=== PATIENT | female | born 1985 ===

== ENCOUNTER 2016-10-16 21:40 | Emergency (ER) | payer OTHER ==
--- NOTE | 2016-10-16 22:52 | ED NURSING NOTES ---
Clinical Report - Nurses [facility] [address] [place] [address] 10/16/2016 21:42 Patient: DISHA ARIAS TRIAGE Triage time 2150. Acuity: LEVEL 3. Chief Complaint: (heavy vag bleeding x 5 days- states "it feels like where my was is ripping apart"). 21:50. --22:01 Alice Rivera R.N. 21:50 10/16/16. BP: 127/61. HR: 87. RR: 20. O2 saturation: 99%. Temp: 98.3 F. Pain level now: 01/23. --22:01 Alice Rivera R.N. Weight: 86.1 kg stated. Height/Length: 65 inches Per Patient. BMI: 31.6. --21:57 Alice Rivera R.N. Medications robitussin 10cc TID for cough. --00:19 Alice Rivera R.N. Hydroxyzine 50mg 1-2 at HS for sleep . --00:20 Alice Rivera R.N. Lamictala 150mg 2 tabs at HS . --00:21 Alice Rivera R.N. OPTICHAMBER MOLLY SOM EVERY 4 HOURS PRN WHEEZING . --00:21 Alice Rivera R.N. Seroquel 100mg at Breakfast and lunch, 400mg at HS . --00:22 Alice Rivera R.N. albuterol 2.5/3ml every 4 hours prn . --00:23 Alice Rivera R.N. Lexapro Oral 20 mg, daily. --00:23 Alice Rivera R.N. Neurontin Oral 800mg at Breakfast, lunch, dinner. 1600mg at HS . --00:23 Alice Rivera R.N. Methadone HCl Oral 118mg daily . --22:00 Alice Rivera R.N. Allergies Codeine. (not noted) Doxycycline.(hives) Erythromycin.(hives) Hydrocodone. (nausea only) Penicillins.(rash) --00:14 Ailce Rivera R.N. Sulfanilamide.(hives) --00:14 Alice Rivera R.N. Tramadol.(hives) --00:15 Alice Rivera R.N. Neomycin.(hives, rash) --00:15 Alice Rivera R.N. History Arrived by private vehicle. Historian: patient. Accompanied by family. Primary physician ([place]). The patient has had abdominal pain and abnormal bleeding. SOCIAL HX: Heavy tobacco smoker (cigarette)- 1-2 packs per day. No alcohol use or drug use. --22: Alice Rivera R.N. PROBLEMS: Abscess. --21:59 Alice Rivera R.N. ADDITIONAL SURGERIES: . --21:59 Alice Rivera R.N. Interventions ID band on patient. To treatment room. --22: Alice Rivera R.N. PHYSICAL ASSESSMENT 21:50. Ambulatory to room. Patient gowned. GENERAL / NEURO / PSYCH: Alert. Oriented X 4. Appears in pain and anxious. RESPIRATORY: Respirations not labored. CVS: Capillary refill less than 2 seconds. GI / : Abdomen soft. Vaginal bleeding present. SKIN: Skin is warm and dry. --22:02 Alice Rivera R.N. NURSING PROGRESS NOTES 21:50. Patient gowned. Head of bed elevated. Reassurance given. Patient identifiers checked. Call light placed in reach. Side rails up. Bed placed in lowest position. Patient ready for evaluation- chart flagged. --22:01 Alice Rivera R.N. late entry -22:00 UA obtained and sent to lab. --22:47 Alice Rivera R.N. 22:15. PELVIC EXAM: Pelvic exam performed by PA. Assisted by one tech. Preparation: pelvic tray; patient placed in lithotomy position. Procedure: speculum and bimanual exam. Status post-procedure: she was stable and no complications were noted. Total time of assist / procedure: 15 minutes. --22:45 Alice Rivera R.N. 22:25. ( US at bedside to do exam). --22:46 Alice Rivera R.N. DISPOSITION / DISCHARGE 23:05. Condition at departure: stable. Discharge instructions provided and reviewed with the patient and family. Reviewed referral to a body and fender mechanic. Patient and family verbalized understanding. Written instructions provided in French. The patient was discharged home and accompanied by family. She left the Emergency Department ambulatory and via private vehicle. Family member driving. --00:25 Alice Rivera R.N. 23:00 10/16/16. BP: 118/60. HR: 82. RR: 18. O2 saturation: 98%. Temp: deferred. Pain level now: 12/23. --00:25 Alice Rivera R.N. Locked/Released at 10/17/2016 0:26 by Alice Rivera R.N.
--- NOTE | 2016-10-16 22:52 | ED CLINICAL REPORT ---
Clinical Report - Physicians/Mid Levels [facility] [address] [place] [address] 10/16/2016 21:42 Patient: DISHA ARIAS Time Seen: 2200. Arrived- By private vehicle. Historian- family. HISTORY OF PRESENT ILLNESS Chief Complaint: VAGINAL BLEEDING. This started today and still present. The symptoms are described as mild. The patient has had pelvic pain. No pain with urination, urinary frequency or urgency of urination. (patient reports last motion appeared to be seriously, started having vaginal bleeding today was large clots. Denies any pain. Denies any shortness of breath. Denies any syncope. Denies tachycardia.). REVIEW OF SYSTEMS No vomiting, diarrhea, cough or difficulty breathing. All systems otherwise negative, except as recorded above. PAST HISTORY Problems: Abscess. Immunizations. LNMP - Last Normal Menstrual Period. Additional Surgeries: . Medications: Neurontin Oral 800mg at Breakfast, lunch, dinner. 1600mg at HS . Lexapro Oral 20 mg, daily. albuterol 2.5/3ml every 4 hours prn . Seroquel 100mg at Breakfast and lunch, 400mg at HS . OPTICHAMBER MOLLY SOM EVERY 4 HOURS PRN WHEEZING . Lamictala 150mg 2 tabs at HS . Hydroxyzine 50mg 1-2 at HS for sleep . robitussin 10cc TID for cough. Methadone HCl Oral 118mg daily . Allergies: Codeine. (not noted) Doxycycline.(hives) Erythromycin.(hives) Hydrocodone. (nausea only) Neomycin.(hives, rash) Penicillins.(rash) Sulfanilamide.(hives) Tramadol.(hives). SOCIAL HISTORY Current every day heavy tobacco smoker- 1-2 packs per day. No alcohol use or drug use. ADDITIONAL NOTES The nursing notes have been reviewed. PHYSICAL EXAM Vital Signs: 10/16/2016 21:50 BP: 127/61. HR: 87. RR: 20. O2 saturation: 99%. Temp: 98.3 F. Pain level now: 8/10. Appearance: Alert. Neck: Neck supple. CVS: Heart sounds normal. Rate normal. Rhythm normal. Respiratory: No respiratory distress. Breath sounds normal. Abdomen: Soft and nontender. Bowel sounds normal. No mass. No abdominal tenderness, rebound tenderness or distention. : External inspection normal. Speculum exam normal. Vaginal bleeding. No cervical dilation. Bimanual exam normal. No tenderness present on bimanual exam. No uterine tenderness. Skin: Skin warm. Normal skin color. Neuro: Oriented X 3. LABS, X-RAYS, AND EKG Pelvic Sonogram: IMPRESSION: 1. Retroflexed uterus. 2. Ovaries not visualized. Electronically Final signed by:Nilson Stanton MD 10/16/2016 11:40:49 PM. Laboratory Tests: UA-Culture if indicated: (DG: 10/16/2016 22:10) ( MsgRcvd 10/16/2016 22:34) Final results Test Result Flag Units (Reference) URINE COLOR YELLOW URINE APPEARANCE CLEAR URINE GLUCOSE NEGATIVE (NEGATIVE) URINE BILIRUBIN NEGATIVE (NEGATIVE) URINE KETONE NEGATIVE (NEGATIVE) URINE SPECIFIC GRAVITY <= 1.005 L (1.010-1.030) URINE PH 6.5 (5.0-8.0) URINE PROTEIN NEGATIVE (NEGATIVE) URINE UROBILINOGEN 0.2 EU/dL (0.2-1.0) URINE NITRITE NEGATIVE (NEGATIVE) URINE BLOOD 3+ (NEGATIVE) URINE LEUK ESTERASE NEGATIVE (NEGATIVE) URINE RBC 25-50 rbc/hpf (0-1) URINE WBC 0-1 wbc/hpf (0-1) URINE EPITHELIAL CELLS 0-1 EPI/hpf (0-5) URINE BACTERIA NONE SEEN (NONE SEEN) URINE COMMENT CULT NOT INDICATED URINE CULTURES ARE SET-UP BASED ON THE FOLLOWING CRITERIA:POSITIVE NITRITEPOSITIVE LEUKOCYTE ESTERASEGREATER THAN 10 WHITE BLOOD CELLSMODERATE (2+) OR GREATER BACTERIA Urine: (DG: 10/16/2016 22:10) ( MsgRcvd 10/16/2016 22:24) Final results Test Result Flag Units (Reference) URINE NEGATIVE . PROGRESS AND PROCEDURES Course of Care: Patient with minimal pain. Vag bleeding. Neg preg. NO concern for torsion as patient does not present with pain. TO f/u outpatient or in ER if sx change abruptly. No signs of acute surgical abdomen. Patient is stable. Symptoms better. Patient/family counseled. Disposition: Discharged. CLINICAL IMPRESSION Moderate dysfunctional uterine bleeding- metrorrhagia. INSTRUCTIONS Drink plenty of fluids. Warnings: Further evaluation is necessary. GENERAL WARNINGS: Return or contact your physician immediately if your condition worsens or changes unexpectedly, if not improving as expected, or if other problems arise. Prescription Medications: Ibuprofen 800 mg tablets: take 1 tablet orally every 8 hours for 3 days, as needed for pain. Dispense ten (10). No refill. Follow-up with: Jayesh Morrell MD, Obstetrics/Gynecology, , [facility], [address] [place] [address] Follow up. Call for the next available appointment. (Electronically signed by Mojgan Espitia P.A.-C 10/17/2016 14:06)
--- NOTE | 2016-10-16 22:52 | ED CLINICAL REPORT ---
Clinical Report - Physicians/Mid Levels Located [facility] [address] [place] [address] 10/16/2016 21:42 Patient: DISHA ARIAS Time Seen: 2200. Arrived- By private vehicle. Historian- family. HISTORY OF PRESENT ILLNESS Chief Complaint: VAGINAL BLEEDING. This started today and still present. The symptoms are described as mild. The patient has had pelvic pain. No pain with urination, urinary frequency or urgency of urination. (patient reports last motion appeared to be seriously, started having vaginal bleeding today was large clots. Denies any pain. Denies any shortness of breath. Denies any syncope. Denies tachycardia.). REVIEW OF SYSTEMS No vomiting, diarrhea, cough or difficulty breathing. All systems otherwise negative, except as recorded above. PAST HISTORY Problems: Abscess. Immunizations. LNMP - Last Normal Menstrual Period. Additional Surgeries: . Medications: Neurontin Oral 800mg at Breakfast, lunch, dinner. 1600mg at HS . Lexapro Oral 20 mg, daily. albuterol 2.5/3ml every 4 hours prn . Seroquel 100mg at Breakfast and lunch, 400mg at HS . OPTICHAMBER MOLLY SOM EVERY 4 HOURS PRN WHEEZING . Lamictala 150mg 2 tabs at HS . Hydroxyzine 50mg 1-2 at HS for sleep . robitussin 10cc TID for cough. Methadone HCl Oral 118mg daily . Allergies: Codeine. (not noted) Doxycycline.(hives) Erythromycin.(hives) Hydrocodone. (nausea only) Neomycin.(hives, rash) Penicillins.(rash) Sulfanilamide.(hives) Tramadol.(hives). SOCIAL HISTORY Current every day heavy tobacco smoker- 1-2 packs per day. No alcohol use or drug use. ADDITIONAL NOTES The nursing notes have been reviewed. PHYSICAL EXAM Vital Signs: 10/16/2016 21:50 BP: 127/61. HR: 87. RR: 20. O2 saturation: 99%. Temp: 98.3 F. Pain level now: 8/10. Appearance: Alert. Neck: Neck supple. CVS: Heart sounds normal. Rate normal. Rhythm normal. Respiratory: No respiratory distress. Breath sounds normal. Abdomen: Soft and nontender. Bowel sounds normal. No mass. No abdominal tenderness, rebound tenderness or distention. : External inspection normal. Speculum exam normal. Vaginal bleeding. No cervical dilation. Bimanual exam normal. No tenderness present on bimanual exam. No uterine tenderness. Skin: Skin warm. Normal skin color. Neuro: Oriented X 3. LABS, X-RAYS, AND EKG Pelvic Sonogram: IMPRESSION: 1. Retroflexed uterus. 2. Ovaries not visualized. Electronically Final signed by:Nilson Stanton MD 10/16/2016 11:40:49 PM. Laboratory Tests: UA-Culture if indicated: (DG: 10/16/2016 22:10) ( MsgRcvd 10/16/2016 22:34) Final results Test Result Flag Units (Reference) URINE COLOR YELLOW URINE APPEARANCE CLEAR URINE GLUCOSE NEGATIVE (NEGATIVE) URINE BILIRUBIN NEGATIVE (NEGATIVE) URINE KETONE NEGATIVE (NEGATIVE) URINE SPECIFIC GRAVITY <= 1.005 L (1.010-1.030) URINE PH 6.5 (5.0-8.0) URINE PROTEIN NEGATIVE (NEGATIVE) URINE UROBILINOGEN 0.2 EU/dL (0.2-1.0) URINE NITRITE NEGATIVE (NEGATIVE) URINE BLOOD 3+ (NEGATIVE) URINE LEUK ESTERASE NEGATIVE (NEGATIVE) URINE RBC 25-50 rbc/hpf (0-1) URINE WBC 0-1 wbc/hpf (0-1) URINE EPITHELIAL CELLS 0-1 EPI/hpf (0-5) URINE BACTERIA NONE SEEN (NONE SEEN) URINE COMMENT CULT NOT INDICATED URINE CULTURES ARE SET-UP BASED ON THE FOLLOWING CRITERIA:POSITIVE NITRITEPOSITIVE LEUKOCYTE ESTERASEGREATER THAN 10 WHITE BLOOD CELLSMODERATE (2+) OR GREATER BACTERIA Urine: (DG: 10/16/2016 22:10) ( MsgRcvd 10/16/2016 22:24) Final results Test Result Flag Units (Reference) URINE NEGATIVE . PROGRESS AND PROCEDURES Course of Care: Patient with minimal pain. Vag bleeding. Neg preg. NO concern for torsion as patient does not present with pain. TO f/u outpatient or in ER if sx change abruptly. No signs of acute surgical abdomen. Patient is stable. Symptoms better. Patient/family counseled. Disposition: Discharged. CLINICAL IMPRESSION Moderate dysfunctional uterine bleeding- metrorrhagia. INSTRUCTIONS Drink plenty of fluids. Warnings: Further evaluation is necessary. GENERAL WARNINGS: Return or contact your physician immediately if your condition worsens or changes unexpectedly, if not improving as expected, or if other problems arise. Prescription Medications: Ibuprofen 800 mg tablets: take 1 tablet orally every 8 hours for 3 days, as needed for pain. Dispense ten (10). No refill. Follow-up with: Jayesh Morrell MD, Obstetrics/Gynecology, , [facility], [address] [place] [address] Follow up. Call for the next available appointment. (Electronically signed by Mojgan Espitia P.A.-C 10/17/2016 14:06)
--- NOTE | 2016-10-16 22:52 | ED ORDER SUMMARY ---
..... Patient: DISHA ARIAS OrderSheet [facility] VisitID: [id number] [place] [address] 31y, F Registration Date/Time: 10/16/2016 ORDER SHEET Weight: 86.1 kg (stated) Allergies: Codeine, Doxycycline, Erythromycin, Hydrocodone, Penicillins, Sulfanilamide, Tramadol, Neomycin GENERAL ORDERS: US Pelvic Complete w Transvag Urgent (21:56 10/16/2016 EKoroleva P.A.-C) (Ack 21:58 CHagerty ER Sheet Writer) (Cancelled: Other22:01 EKoroleva P.A.-C) US Pelvic Complete Urgent (22:01 10/16/2016 EKoroleva P.A.-C) (Ack 22:04 CHagerty ER Sheet Writer) (Cancelled: CORRECT ORDER22:16 CHagerty ER Sheet Writer) UA-Culture if indicated Urgent (22:15 10/16/2016 EKoroleva P.A.-C) (Ack 22:17 CHagerty ER Sheet Writer) (22:46 DDean R.N.) Urine Urgent (22:15 10/16/2016 EKoroleva P.A.-C) (Ack 22:17 CHagerty ER Sheet Writer) (22:46 DDean R.N.) US Pelvic Complete w Transvag Urgent (22:16 10/16/2016 CHagerty ER Sheet Writer written order EKoroleva P.A.-C) (Ack 22:17 CHagerty ER Sheet Writer) (22:46 DDean R.N.) MEDICATION ORDERS: IV FLUIDS: ORDER SHEET NOTES: [Electronically signed by Alice Rivera R.N. (00:26 10/17/2016)] [Electronically signed by Mojgan EspitiaAAngeles-C (14:06 10/17/2016)] [Electronically locked/signed by Alice Rivera R.N. (00:26 10/17/2016)]
--- NOTE | 2016-10-16 22:52 | ED ORDER SUMMARY ---
..... Patient: DISHA ARIAS OrderSheet [facility] VisitID: [id number] [place] [address] 31y, F Registration Date/Time: 10/16/2016 ORDER SHEET Weight: 86.1 kg (stated) Allergies: Codeine, Doxycycline, Erythromycin, Hydrocodone, Penicillins, Sulfanilamide, Tramadol, Neomycin GENERAL ORDERS: US Pelvic Complete w Transvag Urgent (21:56 10/16/2016 EKoroleva P.A.-C) (Ack 21:58 CHagerty ER Dehydrator Operator) (Cancelled: Other22:01 EKoroleva P.A.-C) US Pelvic Complete Urgent (22:01 10/16/2016 EKoroleva P.A.-C) (Ack 22:04 CHagerty ER Dehydrator Operator) (Cancelled: CORRECT ORDER22:16 CHagerty ER Dehydrator Operator) UA-Culture if indicated Urgent (22:15 10/16/2016 EKoroleva P.A.-C) (Ack 22:17 CHagerty ER Dehydrator Operator) (22:46 DDean R.N.) Urine Urgent (22:15 10/16/2016 EKoroleva P.A.-C) (Ack 22:17 CHagerty ER Dehydrator Operator) (22:46 DDean R.N.) US Pelvic Complete w Transvag Urgent (22:16 10/16/2016 CHagerty ER Dehydrator Operator written order EKoroleva P.A.-C) (Ack 22:17 CHagerty ER Dehydrator Operator) (22:46 DDean R.N.) MEDICATION ORDERS: IV FLUIDS: ORDER SHEET NOTES: [Electronically signed by Alice Rivera R.N. (00:26 10/17/2016)] [Electronically signed by Mojgan EspitiaAAngeles-C (14:06 10/17/2016)] [Electronically locked/signed by Alice Rivera R.N. (00:26 10/17/2016)]
--- NOTE | 2016-10-16 22:52 | ED NURSING NOTES ---
Clinical Report - Nurses [facility] [address] [place] [place] [address] 10/16/2016 21:42 Patient: DISHA ARIAS TRIAGE Triage time 2150. Acuity: LEVEL 3. Chief Complaint: (heavy vag bleeding x 5 days- states "it feels like where my was is ripping apart"). 21:50. --22:01 Alice Rivera R.N. 21:50 10/16/16. BP: 127/61. HR: 87. RR: 20. O2 saturation: 99%. Temp: 98.3 F. Pain level now: 01/23. --22:01 Alice Rivera R.N. Weight: 86.1 kg stated. Height/Length: 65 inches Per Patient. BMI: 31.6. --21:57 Alice Rivera R.N. Medications robitussin 10cc TID for cough. --00:19 Alice Rivera R.N. Hydroxyzine 50mg 1-2 at HS for sleep . --00:20 Alice Rivera R.N. Lamictala 150mg 2 tabs at HS . --00:21 Alice Rivera R.N. OPTICHAMBER MOLLY SOM EVERY 4 HOURS PRN WHEEZING . --00:21 Alice Rivera R.N. Seroquel 100mg at Breakfast and lunch, 400mg at HS . --00:22 Alice Rivera R.N. albuterol 2.5/3ml every 4 hours prn . --00:23 Alice Rivera R.N. Lexapro Oral 20 mg, daily. --00:23 Alice Rivera R.N. Neurontin Oral 800mg at Breakfast, lunch, dinner. 1600mg at HS . --00:23 Alice Rivera R.N. Methadone HCl Oral 118mg daily . --22:00 Alice Rivera R.N. Allergies Codeine. (not noted) Doxycycline.(hives) Erythromycin.(hives) Hydrocodone. (nausea only) Penicillins.(rash) --00:14 Alice Rivera R.N. Sulfanilamide.(hives) --00:14 Alice Rivera R.N. Tramadol.(hives) --00:15 Alice Rivera R.N. Neomycin.(hives, rash) --00:15 Alice Rivera R.N. History Arrived by private vehicle. Historian: patient. Accompanied by family. Primary physician ([place]). The patient has had abdominal pain and abnormal bleeding. SOCIAL HX: Heavy tobacco smoker (cigarette)- 1-2 packs per day. No alcohol use or drug use. --22: Alice Rivera R.N. PROBLEMS: Abscess. --21:59 Alice Rivera R.N. ADDITIONAL SURGERIES: . --21:59 Alice Rivera R.N. Interventions ID band on patient. To treatment room. --22: Alice Rivera R.N. PHYSICAL ASSESSMENT 21:50. Ambulatory to room. Patient gowned. GENERAL / NEURO / PSYCH: Alert. Oriented X 4. Appears in pain and anxious. RESPIRATORY: Respirations not labored. CVS: Capillary refill less than 2 seconds. GI / : Abdomen soft. Vaginal bleeding present. SKIN: Skin is warm and dry. --22:02 Alice Rivera R.N. NURSING PROGRESS NOTES 21:50. Patient gowned. Head of bed elevated. Reassurance given. Patient identifiers checked. Call light placed in reach. Side rails up. Bed placed in lowest position. Patient ready for evaluation- chart flagged. --22:01 Alice Rivera R.N. late entry -22:00 UA obtained and sent to lab. --22:47 Alice Rivera R.N. 22:15. PELVIC EXAM: Pelvic exam performed by PA. Assisted by one tech. Preparation: pelvic tray; patient placed in lithotomy position. Procedure: speculum and bimanual exam. Status post-procedure: she was stable and no complications were noted. Total time of assist / procedure: 15 minutes. --22:45 Alice Rivera R.N. 22:25. ( US at bedside to do exam). --22:46 Alice Rivera R.N. DISPOSITION / DISCHARGE 23:05. Condition at departure: stable. Discharge instructions provided and reviewed with the patient and family. Reviewed referral to a technology applications consultant. Patient and family verbalized understanding. Written instructions provided in Bhutanese. The patient was discharged home and accompanied by family. She left the Emergency Department ambulatory and via private vehicle. Family member driving. --00:25 Alice Rivera R.N. 23:00 10/16/16. BP: 118/60. HR: 82. RR: 18. O2 saturation: 98%. Temp: deferred. Pain level now: 12/23. --00:25 Alice Rivera R.N. Locked/Released at 10/17/2016 0:26 by Alice Rivera R.N.
--- NOTE | 2016-10-16 23:41 | DIAGNOSTIC IMAGING REPORT ---
PROCEDURE: US COMPLETE PELVIC W/TRANSVAG INDICATION: PAIN TECHNIQUE: Transabdominal and endovaginal reis scale and color Doppler sonographic images of the female pelvis were obtained. COMPARISON: Pelvic ultrasound 05/26/2007. FINDINGS: TRANSABDOMINAL SCANS: Study limited by patient's body habitus. Normal left kidney. Right renal lower pole not well visualized. The uterus measures 9.9 x 5.2 x 3.2 cm. TRANSVAGINAL SCANS: Retroflexed uterus. Myometrium is unremarkable. Endometrium is not well visualized. Ovaries are not visualized. No adnexal mass or free fluid in the cul-de-sac. IMPRESSION: 1. Retroflexed uterus. 2. Ovaries not visualized.
--- NOTE | 2016-10-17 14:06 | ED MED RECONCILIATION SUMMARY ---
Patient: DISHA ARIAS Medication Reconciliation Report [facility] VisitID: [id number] [address] [place] [address] 31y, F Registration Date/Time: 10/16/2016 Weight: 86.1 kg Height/Length: 65 in. BMI: 31.6 ALLERGIES: Codeine, Doxycycline, Erythromycin, Hydrocodone, Neomycin, Penicillins, Sulfanilamide, Tramadol The patient's Home Medications are listed below: THE FOLLOWING MEDICATIONS NEED TO BE RECONCILED: albuterol 2.5/3ml every 4 hours prn Hydroxyzine 50mg 1-2 at HS for sleep Lamictala 150mg 2 tabs at HS Lexapro Oral 20 mg, daily Methadone HCl Oral 118mg daily Neurontin Oral 800mg at Breakfast, lunch, dinner. 1600mg at HS OPTICHAMBER MOLLY SOM EVERY 4 HOURS PRN WHEEZING robitussin 10cc TID for cough Seroquel 100mg at Breakfast and lunch, 400mg at HS The source(s) of the original Home Medication information: Not obtained. The following Medications were given to the patient in the Emergency Department: None. The following Medications were prescribed to the patient: Ibuprofen 800 mg tablets: take 1 tablet orally every 8 hours for 3 days, as needed for pain. Dispense ten (10). No refill. -- Mojgan Espitia P.A.-C
--- NOTE | 2016-10-17 14:06 | ED DISCHARGE INSTRUCTIONS ---
Patient: DISHA ARIAS General Instructions [facility] VisitID: [id number] [place] [address] 31y, F Registration Date/Time: 10/16/2016 Moderate dysfunctional uterine bleeding- metrorrhagia. INSTRUCTIONS Drink plenty of fluids. Warnings: Further evaluation is necessary. GENERAL WARNINGS: Return or contact your physician immediately if your condition worsens or changes unexpectedly, if not improving as expected, or if other problems arise. Prescription Medications: Ibuprofen 800 mg tablets: take 1 tablet orally every 8 hours for 3 days, as needed for pain. Dispense ten (10). No refill. Follow-up with: Jayesh Morrell MD, Obstetrics/Gynecology, , [facility], [address] [place] [address] Follow up. Call for the next available appointment. ADDITIONAL INFORMATION Irregular Vaginal Bleeding This is a condition in which bleeding occurs at unexpected times of the month. The bleeding may be heavier or manager summer than usual. Heavy bleeding may lead to anemia. If severe enough, anemia may cause you to look pale and feel weak or fatigued. You might have shortness of breath even with little exertion. The female hormones produced in your body every month may be out of balance. This imbalance leads to bleeding. Causes could include an ovarian cyst, emotional stress, pelvic infection. Failure to ovulate during your last cycle may also cause this problem. Home Care: If bleeding is heavy, rest and avoid heavy exertion. You may use acetaminophen (Tylenol) or ibuprofen (Motrin, Advil) to control pain, unless another pain medicine was prescribed. [NOTE: If you have chronic liver or kidney disease or ever had a stomach ulcer or GI bleeding, talk with your doctor before using these medicines.] Iron supplements may be prescribed for anemia. It takes about 4-6 weeks for the iron to correct the anemia. Take the medicine as directed. See your doctor for a repeat blood test after you finish the iron treatment. If hormones were prescribed to control your bleeding, take them exactly as directed. If you were prescribed a medicine called Provera (medroxyprogesterone), the bleeding should stop while you are taking it. Another period will start a few days after you finish the medicine. Follow Up with your doctor, or as advised, within the next 1-2 days if heavy bleeding continues. Otherwise, follow up within the next 1-2 weeks. Get Prompt Medical Attention if any of the following occur: Bleeding becomes heavy (soaking one pad an hour for three hours) Fever of 100.4F (38C) or higher, or as directed by your healthcare provider Increase in abdominal pain Weakness, dizziness or fainting You have been given the following additional information: Dysfunctional Uterine Bleeding (Electronically signed by Mojgan Espitia P.A.-C 10/17/2016 14:06)
--- NOTE | 2016-10-17 14:06 | ED MAR SUMMARY ---
..... Medication Administration Record [facility] [address] [place], [place] [id number] Patient: DISHA ARIAS Visit ID: [id number] 31y, F Weight: 86.1 kg Height/Length: 65 in BMI: 31.6 ALLERGIES: Neomycin, Tramadol, Sulfanilamide, Codeine, Erythromycin, Hydrocodone, Penicillins, Doxycycline
--- NOTE | 2016-10-17 14:06 | ED MED RECONCILIATION SUMMARY ---
Patient: DISHA ARIAS Medication Reconciliation Report [facility] VisitID: [id number] [address] [place] [address] 31y, F Registration Date/Time: 10/16/2016 Weight: 86.1 kg Height/Length: 65 in. BMI: 31.6 ALLERGIES: Codeine, Doxycycline, Erythromycin, Hydrocodone, Neomycin, Penicillins, Sulfanilamide, Tramadol The patient's Home Medications are listed below: THE FOLLOWING MEDICATIONS NEED TO BE RECONCILED: albuterol 2.5/3ml every 4 hours prn Hydroxyzine 50mg 1-2 at HS for sleep Lamictala 150mg 2 tabs at HS Lexapro Oral 20 mg, daily Methadone HCl Oral 118mg daily Neurontin Oral 800mg at Breakfast, lunch, dinner. 1600mg at HS OPTICHAMBER MOLLY SOM EVERY 4 HOURS PRN WHEEZING robitussin 10cc TID for cough Seroquel 100mg at Breakfast and lunch, 400mg at HS The source(s) of the original Home Medication information: Not obtained. The following Medications were given to the patient in the Emergency Department: None. The following Medications were prescribed to the patient: Ibuprofen 800 mg tablets: take 1 tablet orally every 8 hours for 3 days, as needed for pain. Dispense ten (10). No refill. -- Mojgan Espitia P.A.-C
--- NOTE | 2016-10-17 14:06 | ED MAR SUMMARY ---
..... Medication Administration Record [facility] [address] [place], [place] [id number] Patient: DISHA ARIAS Visit ID: [id number] 31y, F Weight: 86.1 kg Height/Length: 65 in BMI: 31.6 ALLERGIES: Neomycin, Tramadol, Sulfanilamide, Codeine, Erythromycin, Hydrocodone, Penicillins, Doxycycline
--- NOTE | 2016-10-17 14:06 | ED DISCHARGE INSTRUCTIONS ---
Patient: DISHA ARIAS General Instructions [facility] VisitID: [id number] [place] [address] 31y, F Registration Date/Time: 10/16/2016 Moderate dysfunctional uterine bleeding- metrorrhagia. INSTRUCTIONS Drink plenty of fluids. Warnings: Further evaluation is necessary. GENERAL WARNINGS: Return or contact your physician immediately if your condition worsens or changes unexpectedly, if not improving as expected, or if other problems arise. Prescription Medications: Ibuprofen 800 mg tablets: take 1 tablet orally every 8 hours for 3 days, as needed for pain. Dispense ten (10). No refill. Follow-up with: Jayesh Morrell MD, Obstetrics/Gynecology, , [facility], [address] [place] [address] Follow up. Call for the next available appointment. ADDITIONAL INFORMATION Irregular Vaginal Bleeding This is a condition in which bleeding occurs at unexpected times of the month. The bleeding may be heavier or program counselor than usual. Heavy bleeding may lead to anemia. If severe enough, anemia may cause you to look pale and feel weak or fatigued. You might have shortness of breath even with little exertion. The female hormones produced in your body every month may be out of balance. This imbalance leads to bleeding. Causes could include an ovarian cyst, emotional stress, pelvic infection. Failure to ovulate during your last cycle may also cause this problem. Home Care: If bleeding is heavy, rest and avoid heavy exertion. You may use acetaminophen (Tylenol) or ibuprofen (Motrin, Advil) to control pain, unless another pain medicine was prescribed. [NOTE: If you have chronic liver or kidney disease or ever had a stomach ulcer or GI bleeding, talk with your doctor before using these medicines.] Iron supplements may be prescribed for anemia. It takes about 4-6 weeks for the iron to correct the anemia. Take the medicine as directed. See your doctor for a repeat blood test after you finish the iron treatment. If hormones were prescribed to control your bleeding, take them exactly as directed. If you were prescribed a medicine called Provera (medroxyprogesterone), the bleeding should stop while you are taking it. Another period will start a few days after you finish the medicine. Follow Up with your doctor, or as advised, within the next 1-2 days if heavy bleeding continues. Otherwise, follow up within the next 1-2 weeks. Get Prompt Medical Attention if any of the following occur: Bleeding becomes heavy (soaking one pad an hour for three hours) Fever of 100.4F (38C) or higher, or as directed by your healthcare provider Increase in abdominal pain Weakness, dizziness or fainting You have been given the following additional information: Dysfunctional Uterine Bleeding (Electronically signed by Mojgan Espitia P.A.-C 10/17/2016 14:06)
== END 2016-10-16 23:05 | disposition home or self-care (01) ==
LOC: ED SRH 21:40
DX: N93.8 Other specified abnormal uterine and vaginal bleeding (principal); Z79.899 Other long term (current) drug therapy; Z79.891 Long term (current) use of opiate analgesic; Z79.51 Long term (current) use of inhaled steroids; Z88.0 Allergy status to penicillin; Z88.1 Allergy status to other antibiotic agents; Z88.2 Allergy status to sulfonamides; Z88.5 Allergy status to narcotic agent
CPT/HCPCS: 90004; 93070